=== PATIENT | male | born 1955 | race Caucasian/White ===

== ENCOUNTER 2016-12-13 14:27 | Emergency (ER) | payer MEDICARE, OTHER ==
[~2016-12-13] VITALS: Ht 180.3 cm; Wt 59.1 kg
[~2016-12-13 14:27] MED LIST: ZANTAC 7575 MG PO; vitorin PO
[2016-12-13 14:40] VITALS: TEMP 98.7
[2016-12-13] MEDS ORDERED: DAZIDOX10 MG PO (15:15)
[2016-12-13] MEDS ORDERED: FENTANYL 100MCG TD (15:15)
[2016-12-13] MEDS ORDERED: FENTANYL 50MCG TD (15:15)
[2016-12-13] MEDS ORDERED: VALIUM 10MG10 MG/TAB PO (15:16)
[2016-12-13] MEDS ORDERED: CYMBALTA 60MG60 MG PO (15:17)
[2016-12-13] MEDS ORDERED: FLONASEALLERGY NS (15:27)
[2016-12-13 15:28] LABS: BASO # 0.1 (0.0-0.2); BASO % 0.9 % (0.0-2.0); GRAN # 8.7 (1.4-6.5); GRAN % 88.8 % (42.2-75.2); HEMATOCRIT 38.2 % (42.0-52.0); LYMPH # 0.4 (1.2-3.4); LYMPH % 4.4 % (20.0-51.0); MEAN CELL VOLUME 78 fl (80.0-100.0); MEAN CORPUSCULAR HEMOGLOBIN 27 pg (27.0-31.0); MEAN CORPUSCULAR HGB CONC 34 g/dl (33.0-37.0); MEAN PLATELET VOLUME 8.4 fl (7.4-10.4); MONO # 0.5 (0.1-0.6); MONO % 4.9 % (1.7-9.3); PLATELET COUNT 299 K/mm3 (130-400); RED BLOOD COUNT 4.88 M/mm3 (4.20-5.60); REDCELL DISTRIBUTION WIDTH-CV 15.4 % (11.5-14.5); WHITE BLOOD COUNT 9.8 K/mm3 (4.8-10.8)
[2016-12-13] MEDS ORDERED: PROCTOZONE-HC2.5% RC (15:28)
[2016-12-13] MEDS ORDERED: PRIL40 PO (15:28)
[2016-12-13] MEDS ORDERED: SEROQUEL50 MG PO (15:29)
[2016-12-13] MEDS ORDERED: SENNO8.6 MG PO (15:29)
[2016-12-13] MEDS ORDERED: ZANTAC 150MG T150 MG PO (15:29)
[2016-12-13] MEDS ORDERED: NYSTATIN OR100 MU/ML PO (15:30)
[2016-12-13] MEDS ORDERED: PREDNISONE20 MG PO ×2 (15:30→16:35)
[2016-12-13 15:38] LABS: ALBUMIN 3.1 gm/dL (3.5-5.0); BILIRUBIN,TOTAL 0.7 mg/dL (0.0-1.0); C-REACTIVE PROTEIN 4.6 mg/dL (0.0-0.9); CALCIUM 8.3 mg/dL (8.4-10.2); CREATININE, serum 0.83 mg/dL (0.66-1.25); MAGNESIUM 1.9 mg/dL (1.6-2.3); POTASSIUM 4.2 mmol/L (3.4-5.0); TOTAL PROTEIN 6.1 gm/dL (6.4-8.2)
[2016-12-13] MEDS ORDERED: FLAGYL500 MG PO (16:35)
[2016-12-13] MEDS ORDERED: CIPRO 500MG TA500 MG PO (16:35)
[2016-12-13 16:43] LABS: THYROID STIMULATING HORMONE 2.69 uIU/mL (0.465-4.680)
[2016-12-13 16:51] VITALS: BP 114/82; PULSE 93
== END 2016-12-13 16:53 | disposition home or self-care (01) ==
LOC: COL.ER 14:27
PROVIDERS: Emergency Medicine
DX: K92.1 Melena (principal); E87.1 Hypo-osmolality and hyponatremia; R19.7 Diarrhea, unspecified; C43.9 Malignant melanoma of skin, unspecified; Z79.899 Other long term (current) drug therapy; C78.7 Secondary malignant neoplasm of liver and intrahepatic bile duct; C78.89 Secondary malignant neoplasm of other digestive organs; C78.5 Secondary malignant neoplasm of large intestine and rectum; Z90.49 Acquired absence of other specified parts of digestive tract
CPT/HCPCS: J2930; J7030

== ENCOUNTER 2016-12-22 13:11 | Day surgery (SDC) | payer MEDICARE, OTHER ==
[~2016-12-22] VITALS: Ht 180.3 cm; Wt 64.6 kg
[~2016-12-22 13:11] MED LIST changes: +CIPRO 500MG TA500 MG PO; +CYMBALTA 60MG60 MG PO; +DAZIDOX10 MG PO; +FENTANYL 100MCG TD; +FENTANYL 50MCG TD; +FLAGYL500 MG PO; +FLONASEALLERGY NS; +NYSTATIN OR100 MU/ML PO; +PREDNISONE20 MG PO; +PRIL40 PO; +PROCTOZONE-HC2.5% RC; +SENNO8.6 MG PO; +SEROQUEL50 MG PO; +VALIUM 10MG10 MG/TAB PO; +ZANTAC 150MG T150 MG PO
[2016-12-22 13:46] VITALS: BP 100/63; PULSE 81; TEMP 98.3
[2016-12-22 14:44] VITALS: BP 102/65; PULSE 83; TEMP 98.2
[2016-12-22 14:59] VITALS: BP 97/64; PULSE 88
[2016-12-22 15:15] VITALS: BP 102/67; PULSE 88
== END 2016-12-22 15:30 | disposition home or self-care (01) ==
LOC: SDCO 13:11
DX: K51.20 Ulcerative (chronic) proctitis without complications (principal); B25.9 Cytomegaloviral disease, unspecified; R19.5 Other fecal abnormalities; D50.0 Iron deficiency anemia secondary to blood loss (chronic); E78.00 Pure hypercholesterolemia, unspecified; Z79.52 Long term (current) use of systemic steroids
CPT/HCPCS: J2250; J3010; J7030